=== PATIENT | female | born 1960 | race Caucasian/White ===

== ENCOUNTER → 2018-02-02 | Outpatient (CLI) | payer OTHER ==
[~2018-02-02] MED LIST: AMBIEN CR 6.26.25 MG PO; B COMPLEX-VITA1 EACH PO; BACTRIM DS TAB1 EACH PO; CARDIZEM CD 18180 M3 PO; CYCLOBENZAPRINE10 MG PO; ESTRACE1 MG PO; FLEXERIL PO; GLUCOPHAGE XR500 MG PO; HYDROCODON-ACE1 EAC7 PO; IBUPROFEN 800800 M1 PO; K-DUR 20 MEQ T20 MEQ PO; KEFLEX500 MG PO; LASIX 20 MG TAB20 MG PO; NEURONTIN800 MG PO; PRENATAL; PRILOSEC40 MG PO; PROZAC 20 MG20 MG PO; VITAMIN D10000 UNIT PO; ZOFRAN4 MG PO
== END ==
LOC: M.RAD 07:49
DX: M47.896 Other spondylosis, lumbar region (principal); I70.0 Atherosclerosis of aorta; M25.78 Osteophyte, vertebrae

== ENCOUNTER → 2018-09-07 | Outpatient (CLI) | payer OTHER ==
--- NOTE | 2018-09-07 13:34 | EXE ---
[place] [address] STRESS ECHOCARDIOGRAM Name: OLAF MOORE Room: [facility]#: [id number] Admission: 09/07/18 Attend Phys: Allison Mendoza MD Discharge: Date of : 58 Date of Service: 09/07/18 1333 Report #: [id number] THIS REPORT FOR: //name// APPROVED REPORT Study performed: 09/07/2018 11:05:23 Exam: Stress Echocardiogram Indication: Dyspnea , Chest pain Patient Location: Out-Patient Stress Nurse: Lolis Rosenthal RN Supervising Physician: Cristóbal Negron MD Ht: 5 ft 4 in HR: 86 bpm BP: 143/95 mmHg Medical History Cardiac Risk Factors: HTN, FHX of CAD, Tobacco History (Former) Procedure The patient underwent an Exercise Stress Test using the Joe Protocol. Blood pressure, heart rate, and EKG were monitored. An Echocardiogram was performed by die technician in four stages in quad fashion. At peak stress, four selected images were obtained and placed side by side with resting images for comparison. Stress Test Details Stress Test: Exercise stress testing was performed using a Joe protocol. HR Resting HR: 86 bpm Max Heart Rate (APMHR): 161 bpm Max HR Achieved: 130 bpm Target HR (85% APMHR): 136 bpm % of APMHR: 80 Recovery HR: 89 bpm HR response to stress: Normal HR response to stress BP Resting BP: 143/95 mmHg Max BP: 220/85 mmHg Recovery BP: 167/84 mmHg ECG Resting ECG: Sinus Rhythm Stress ECG: [place] [address] STRESS ECHOCARDIOGRAM Name: OLAF MOORE Room: [facility]#: [id number] Admission: 09/07/18 Attend Phys: Allison Mendoza MD Discharge: Date of : 58 Date of Service: 09/07/18 1333 Report #: [id number] ST Change: Upsloping ST depression Maximum ST Deviation: 0.5 mm Recovery ECG: Sinus Rhythm Recovery ST Change: Normal Clinical Reason for Termination: Dyspnea, Leg pain, Fatigue Stress Symptoms: Dyspnea Exercise duration: 7 min 30 sec Highest Stage Achieved: Stage 3: 3.4 mph at 14% grade. Exercise capacity: 9.69 METs Stress ECG Conclusion negative ecg portion Pre-Stress Echo The resting Echocardiogram showed normal left ventricular contractility with an estimated Ejection Fraction of about >55%. Post-Stress Echo LV chamber size decreases, LV ejection fraction increases, no new wall motion abnormalities are seen. Conclusion Clinical Response: Non-ischemic Exercise Capacity: Average Stress ECG Response: Non-ischemic Stress Echo Images: Non-ischemic Negative stress test of ischemia or infarct. Other Information Study Quality: Good <Conclusion> Negative stress test of ischemia or infarct. <ELECTRONICALLY SIGNED> By: Cristóbal Negron MD, FACC 09/07/181332 32 32 Cristóbal Negron MD, FACC /INF
== END ==
LOC: M.CRD 08-24 11:00 → M.RAD 08-25 09:00
DX: M85.89 Other specified disorders of bone density and structure, multiple sites (principal); N64.4 Mastodynia; R07.9 Chest pain, unspecified; R06.02 Shortness of breath

== ENCOUNTER → 2018-09-09 | Outpatient (CLI) | payer OTHER | LOC: M.RAD 08:51 | DX: I51.7 Cardiomegaly (principal); R07.9 Chest pain, unspecified ==

== ENCOUNTER 2019-08-13 12:22 | Emergency (ER) | payer OTHER ==
[~2019-08-13] VITALS: Ht 162.6 cm; Wt 82.1 kg
[2019-08-13] MEDS ORDERED: HYDROCHLOROTHIA25 M2 PO (12:45)
[2019-08-13 13:35] LABS: ABSOLUTE BASOPHILS 0.1 thou/uL (0.0-0.2); ABSOLUTE LYMPHOCYTES 1.6 thou/uL (0.8-5.3); ABSOLUTE MONOCYTES 0.5 thou/uL (0.0-1.2); ABSOLUTE NEUTROPHILS 6.3 thou/uL (1.6-8.1); BASOPHILS 1.1 %; EOSINOPHILS 0.4 %; HEMATOCRIT 47.8 % (37.0-47.0); HEMOGLOBIN 16.9 gm/dL (12.0-15.0); LYMPHOCYTES 19.1 %; MCH 32.2 pg (26.0-34.0); MCHC 35.3 g/dL (28.0-37.0); MCV 91.1 fL (80.0-100.0); MONOCYTES 6.2 %; MPV 7.2 fl. (7.2-11.1); NUCLEATED RBCS 0 /100WBC; PLATELET COUNT* 225 thou/uL (150-400); POLYS 73.2 %; RBC 5.25 mil/uL (4.20-5.00); RDW-CV 12.6 % (10.5-14.5); WBC 8.6 thou/uL (4.0-11.0)
[2019-08-13 13:42] LABS: CALCIUM 10.3 mg/dL (8.5-10.1); CREATININE 0.9 mg/dL (0.6-1.3); POTASSIUM 3.6 mmol/L (3.5-5.1)
[2019-08-13 13:47] LABS: PROTIME 10.7 Seconds (9.20-11.50)
[2019-08-13 13:52] LABS: ALBUMIN 4.3 g/dL (3.4-5.0); TOTAL BILIRUBIN 0.8 mg/dL (<0.1-1.0); TOTAL PROTEIN 7.8 g/dL (6.4-8.2)
[2019-08-13] MEDS ORDERED: CATAPRES0.1 MG PO (14:59)
[2019-08-13 15:36] VITALS: BP 155/89
--- NOTE | 2019-08-14 13:19 | EKG ---
[place] [address] ELECTROCARDIOGRAM REPORT Name: OLAF MOORE Room: [facility]#: [id number] Admission: 08/13/19 Attend Phys: Discharge: 08/13/19 Date of : 58 Report #: [id number] THIS REPORT FOR: //name// [facility] ED Test Date: 2019-08-13 Test Time: 12:48:48 Pat Name: OLAF MOORE Department: Room: Gender: F Director Digital [employer]: : 1960 Requested By: Beata Guthrie Order Number: [id number] MD: Filemon Paz Measurements Intervals [place] Rate: 88 P: 21 CA: 173 QRS: 10 QRSD: 84 T: 48 QT: 377 QTc: 457 Interpretive Statements Sinus rhythm Possible left atrial enlargement Abnormal R-wave progression, late transition Baseline wander in lead(s) II,III,aVF,V3,V6 No previous ECG available for comparison Electronically Signed On 08-14-2019 13:19:36 CDT by Filemon Paz [email or web address] <ELECTRONICALLY SIGNED> By: Filemon Paz MD, FACC 08/14/19 1319 1248 1248 Filemon Paz MD, FAC /EPI
== END 2019-08-13 15:39 | disposition home or self-care (01) ==
LOC: M.ERS 12:22
PROVIDERS: Personal Emergency Response Attendant
DX: I16.0 Hypertensive urgency (principal); I10 Essential (primary) hypertension; G25.81 Restless legs syndrome; M79.7 Fibromyalgia; M19.90 Unspecified osteoarthritis, unspecified site; G89.29 Other chronic pain; Z88.8 Allergy status to other drugs, medicaments and biological substances; Z90.49 Acquired absence of other specified parts of digestive tract; Z90.710 Acquired absence of both cervix and uterus; Z98.890 Other specified postprocedural states

== ENCOUNTER → 2019-08-19 | Outpatient (CLI) | payer OTHER ==
[~2019-08-19] MED LIST changes: +CATAPRES0.1 MG PO; +HYDROCHLOROTHIA25 M2 PO
[2019-08-19 11:26] LABS: ABSOLUTE EOSINOPHILS 0.1 thou/uL (0.0-0.7); ABSOLUTE MONOCYTES 0.7 thou/uL (0.0-1.2); ABSOLUTE NEUTROPHILS 3.9 thou/uL (1.6-8.1); BASOPHILS 0.2 %; EOSINOPHILS 1.2 %; HEMATOCRIT 43.4 % (37.0-47.0); HEMOGLOBIN 15.3 gm/dL (12.0-15.0); LYMPHOCYTES 30.2 %; MCH 32.9 pg (26.0-34.0); MCHC 35.4 g/dL (28.0-37.0); MONOCYTES 9.8 %; MPV 7.5 fl. (7.2-11.1); NUCLEATED RBCS 0 /100WBC; PLATELET COUNT* 221 thou/uL (150-400); POLYS 58.6 %; RBC 4.66 mil/uL (4.20-5.00); RDW-CV 12.7 % (10.5-14.5); WBC 6.7 thou/uL (4.0-11.0)
[2019-08-19 11:36] LABS: ALBUMIN 4.1 g/dL (3.4-5.0); CALCIUM 9.2 mg/dL (8.5-10.1); CREATININE 0.9 mg/dL (0.6-1.3); MAGNESIUM 1.8 mg/dL (1.8-2.4); POTASSIUM 4.2 mmol/L (3.5-5.1); TOTAL BILIRUBIN 0.5 mg/dL (<0.1-1.0); TOTAL PROTEIN 7.2 g/dL (6.4-8.2)
== END ==
LOC: M.CT 10:41
PROVIDERS: Family Medicine
DX: G43.109 Migraine with aura, not intractable, without status migrainosus (principal); I16.0 Hypertensive urgency; I10 Essential (primary) hypertension

== ENCOUNTER → 2019-12-29 | Outpatient (CLI) | payer OTHER | LOC: M.RAD 11:28 | DX: Z12.31 Encounter for screening mammogram for malignant neoplasm of breast (principal) ==